=== PATIENT | female | born 2000 | race American Indian/Alaskan Native ===

== ENCOUNTER 2025-02-05 13:34 | Observation (INO) | payer MEDICAID, SELFPAY ==
[2025-02-05 13:54] VITALS: BP 116/69; PULSE 78
[2025-02-05 14:12] VITALS: BMI 39.4
[2025-02-05 15:25] VITALS: BP 116/69; PULSE 78; RESP 18; RESP 99; TEMP 36.8
== END 2025-02-05 15:15 | disposition home or self-care (01) ==
PROVIDERS: Admitting Provider Obstetrics & Gynecology; Visit Provider Obstetrics & Gynecology
DX: O26.853 Spotting complicating pregnancy, third trimester (principal); Z3A.32 32 weeks gestation of pregnancy
CPT/HCPCS: 59025; 59899

== ENCOUNTER 2025-03-06 11:38 | Observation (INO) | payer MEDICAID, SELFPAY ==
[2025-03-06] VITALS (15 sets, daily range): BP systolic 118–132; BP diastolic 70–80; PULSE 73–99; RESP 18–97; TEMP 36.8; O2SAT 97–99; BMI 40.6
--- NOTE | 2025-03-06 12:26 | XR_ITS ---
Examination: Biophysical profile, ultrasound Date and time of exam: January 06, 2025 1301 hrs. Indications: Onset pelvic contractions today Technique: Multiple transabdominal sonographic images of the pelvis abdomen obtained. Attention is directed to the breathing movement, gross body movement, amniotic fluid volume and tone. Findings: Amniotic fluid index 7.9 cm Total biophysical profile is 8 of 8. breathing movement is 2. Gross body movement is 2. tone is 2. Qualitative amniotic fluid volume is 2 Impression: Biophysical profile is 8 of 8.
== END 2025-03-06 13:51 | disposition home or self-care (01) ==
PROVIDERS: Admitting Provider Student in an Organized Health Care Education/Training Program; PCP Nurse Practitioner Women's Health; Visit Provider Student in an Organized Health Care Education/Training Program
DX: O47.03 False labor before 37 completed weeks of gestation, third trimester (principal); Z3A.36 36 weeks gestation of pregnancy
CPT/HCPCS: 59025; 59899; 76819

== ENCOUNTER 2025-03-17 16:49 | Outpatient (CLI) | payer MEDICAID, SELFPAY ==
[2025-03-17 16:55] VITALS: BP 129/68; PULSE 74
[2025-03-17 18:04] LABS: Collection Type, Urine Clean Catch
[2025-03-17 18:15] LABS: Basophils % (Auto) 1 % (0-2.5); Eosinophils % (Auto) 0 % (0-10); Hematocrit 31.4 % (36.0-46.0); Immature Granulocytes % (Auto) 0 % (0-0); Immature Granulocytes Auto 0.01 Thou/mm3 (0.00-0.00); Lymphocytes # (Auto) 2.5 Thou/mm3 (1.0-4.8); Lymphocytes % (Auto) 45 % (10-50); Mean Corpuscular Hemoglobin 28.8 pg (25.0-35.0); Mean Corpuscular Volume 82 fL (80-100); Monocytes # (Auto) 0.4 Thou/mm3 (0.0-0.8); Monocytes % (Auto) 6 % (0-12); Neutrophils # (Auto) 2.7 Thou/mm3 (1.8-7.7); Neutrophils % (Auto) 48 % (37-80); Nucleated Red Blood Cell % 0 /100 WBC (0); Platelet Count 178 Thou/mm3 (140-440); Red Blood Count 3.82 Miln/mm3 (4.00-5.20); White Blood Count 5.6 Thou/mm3 (3.6-11.0)
[2025-03-17 18:16] LABS: Bilirubin,Urine Negative (Negative); Blood,Urine Negative (Negative); Clarity,Urine Clear (Clear/Hazy); Color,Urine Lt-Yellow (Lt Yel-Yel); Glucose, Urine Negative (Negative); Ketones,Urine Negative (Negative); Leukocyte Esterase,Urine Positive (Negative); Nitrite,Urine Negative (Negative); Protein,Urine Trace (Neg - Trace); RBC,Urine 3 /hpf (0-3); Specific Gravity,Urine 1.019 (1.001-1.035); Squamous Epithelial Cell,Urine 6 /hpf (0-5); Urobilinogen,Urine Negative mg/dL (0.0-1.0); WBC,Urine 15 /hpf (0-5)
--- NOTE | 2025-03-17 18:22 | XR_ITS ---
Examination: Biophysical profile, ultrasound Date and time of exam: March 17, 2025 1834 hrs. Indications: Blurred vision today, clinical diagnosis preeclampsia, history gestational diabetes Technique: Multiple transabdominal sonographic images of the pelvis abdomen obtained. Attention is directed to the breathing movement, gross body movement, amniotic fluid volume and tone. Findings: Amniotic fluid index 8.7 cm Total biophysical profile is 8 of 8. breathing movement is 2. Gross body movement is 2. tone is 2. Qualitative amniotic fluid volume is 2 Impression: Biophysical profile is 8 of 8.
[2025-03-17 18:24] VITALS: BP 129/68; PULSE 74; RESP 16; RESP 98; TEMP 37.1
[2025-03-17 18:46] LABS: Alanine Aminotransferase 8 U/L (10-49); Albumin, Serum 3.7 gm/dL (3.5-5.0); Albumin/Globulin Ratio 1.1 (1.2-2.2); Alkaline Phosphatase 262 U/L (46-116); Anion Gap 8 (7-16); Aspartate Amino Transferase 17 U/L (0-34); BUN/Creatinine Ratio 14 Ratio (12-20); Bilirubin,Total 0.4 mg/dL (0.3-1.2); Blood Urea Nitrogen 11 mg/dL (9-23); Calcium 8.8 mg/dL (8.3-10.6); Carbon Dioxide 21.6 mMol/L (20.0-31.0); Chloride 109 mMol/L (98-107); Creatinine (Component) 0.8 mg/dL (0.6-1.3); Globulin 3.3 gm/dL (2.3-3.5); Glucose 82 mg/dL (74-106); Osmolality,Calculated 275 (275-295); Potassium 4.2 mMol/L (3.4-5.1); Sodium 139 mMol/L (136-145); Uric Acid 7.3 mg/dL (3.1-7.8); eGFR > 60 See Note
[2025-03-17 18:52] LABS: Fibrinogen 560 mg/dL (175-375); INR 0.9 (0.9-1.3); Prothrombin Time 10.1 Seconds (9.0-12.2)
[2025-03-17 19:00] VITALS: BMI 41.3
== END 2025-03-17 19:55 | disposition home or self-care (01) ==
LOC: S4S1 16:49 → S4SX 16:50
PROVIDERS: Referring Provider Nurse Practitioner Women's Health; Visit Provider Nurse Practitioner Women's Health
DX: Z34.03 Encounter for supervision of normal first pregnancy, third trimester (principal); Z36.89 Encounter for other specified antenatal screening; Z3A.37 37 weeks gestation of pregnancy
CPT/HCPCS: 36415; 59025; 76819; 80053; 81001; 84550; 85025; 85384; 85610; 85730

== ENCOUNTER 2025-03-24 10:58 | Outpatient (RCR) | payer MEDICAID, SELFPAY ==
--- NOTE | 2025-03-16 10:19 | XR_ITS ---
Examination: Biophysical profile, ultrasound Date and time of exam: March 16, 2025 1035 hours INDICATIONS: Diagnosis maternal obesity, diagnosis gestational diabetes Technique: Multiple transabdominal sonographic images of the pelvis abdomen obtained. Attention is directed to the breathing movement, gross body movement, amniotic fluid volume and tone. Findings: Amniotic fluid index 9.8 cm Total biophysical profile is 8 of 8. breathing movement is 2. Gross body movement is 2. tone is 2. Qualitative amniotic fluid volume is 2 Impression: Biophysical profile is 8 of 8.
[2025-03-16 11:12] VITALS: BP 124/68; PULSE 75; RESP 16; TEMP 36.7
--- NOTE | 2025-03-24 11:02 | XR_ITS ---
Examination: Biophysical profile, ultrasound Date and time of exam: March 24, 2025 1110 hours INDICATIONS: Diagnosis maternal obesity, diagnosis gestational diabetes Technique: Multiple transabdominal sonographic images of the pelvis abdomen obtained. Attention is directed to the breathing movement, gross body movement, amniotic fluid volume and tone. Findings: Amniotic fluid index 13.2 cm Total biophysical profile is 8 of 8. breathing movement is 2. Gross body movement is 2. tone is 2. Qualitative amniotic fluid volume is 2 Impression: Biophysical profile is 8 of 8.
[2025-03-24 11:38] VITALS: BP 136/72; PULSE 93; RESP 16; TEMP 36.6
== END 2025-03-24 23:59 | disposition home or self-care (01) ==
LOC: S4S1 10:58
PROVIDERS: Referring Provider Nurse Practitioner Women's Health; Visit Provider Nurse Practitioner Women's Health
DX: O24.410 Gestational diabetes mellitus in pregnancy, diet controlled (principal); Z3A.38 38 weeks gestation of pregnancy
CPT/HCPCS: 59025; 76819

== ENCOUNTER 2025-03-27 07:23 | Inpatient (IN) | payer MEDICAID, SELFPAY ==
[2025-03-27] VITALS (194 sets, daily range): BP systolic 124–182; BP diastolic 67–108; PULSE 74–127; RESP 18; TEMP 36.6–37; O2SAT 89–100; BMI 41.5
[2025-03-27] MEDS: Ampicillin Inj 2,000 MG in SODIUM CHLORIDE 0.9% (POP) 100 ML 200 MG IV (08:15)
[2025-03-27] MEDS: RINGERS LACTATED 1000 ML 1,000 ML 100 ML IV ×2 (08:16→22:40)
[2025-03-27 09:10] LABS: Amphetamine/Metham Scrn,Ur OB Negative (Negative); Benzoylecgonine Screen, Ur OB Negative (Negative); Opiate Screen,Urine OB Negative (Negative); THC Screen,Urine OB Negative (Negative)
[2025-03-27 09:19] LABS: Basophils % (Auto) 1 % (0-2.5); Eosinophils % (Auto) 0 % (0-10); Hematocrit 35.2 % (36.0-46.0); Hemoglobin 12.3 g/dL (12.0-16.0); Immature Granulocytes % (Auto) 0 % (0-0); Immature Granulocytes Auto 0.02 Thou/mm3 (0.00-0.00); Lymphocytes # (Auto) 2.9 Thou/mm3 (1.0-4.8); Lymphocytes % (Auto) 49 % (10-50); Mean Corpuscular HGB Conc 34.9 g/dl (31.0-37.0); Mean Corpuscular Hemoglobin 28.7 pg (25.0-35.0); Mean Corpuscular Volume 82 fL (80-100); Monocytes # (Auto) 0.5 Thou/mm3 (0.0-0.8); Monocytes % (Auto) 8 % (0-12); Neutrophils # (Auto) 2.5 Thou/mm3 (1.8-7.7); Neutrophils % (Auto) 42 % (37-80); Nucleated Red Blood Cell % 0 /100 WBC (0); Platelet Count 182 Thou/mm3 (140-440); RDW Standard Deviation 42.4 fL (36.4-46.3); Red Blood Count 4.29 Miln/mm3 (4.00-5.20); White Blood Count 5.9 Thou/mm3 (3.6-11.0)
[2025-03-27 09:22] LABS: Collection Type, Urine Clean Catch
[2025-03-27 09:23] LABS: Alanine Aminotransferase 8 U/L (10-49); Albumin, Serum 3.9 gm/dL (3.5-5.0); Albumin/Globulin Ratio 1.1 (1.2-2.2); Alkaline Phosphatase 272 U/L (46-116); Anion Gap 11 (7-16); Aspartate Amino Transferase 17 U/L (0-34); BUN/Creatinine Ratio 16 Ratio (12-20); Bilirubin,Total 0.4 mg/dL (0.3-1.2); Blood Urea Nitrogen 13 mg/dL (9-23); Calcium 9.6 mg/dL (8.3-10.6); Calcium (Corrected) 9.7 mg/dL (8.5-10.1); Carbon Dioxide 17.4 mMol/L (20.0-31.0); Chloride 109 mMol/L (98-107); Creatinine (Component) 0.8 mg/dL (0.6-1.3); Globulin 3.6 gm/dL (2.3-3.5); Glucose 90 mg/dL (74-106); Osmolality,Calculated 273 (275-295); Sodium 137 mMol/L (136-145); Total Protein 7.5 gm/dL (5.7-8.2); Uric Acid 7.1 mg/dL (3.1-7.8); eGFR > 60 See Note
[2025-03-27 09:27] LABS: Syphilis Nonreactive (Nonreactive)
[2025-03-27 09:46] LABS: Bilirubin,Urine Negative (Negative); Blood,Urine Trace (Negative); Clarity,Urine Clear (Clear/Hazy); Color,Urine Colorless (Lt Yel-Yel); Glucose, Urine Negative (Negative); Ketones,Urine Negative (Negative); Leukocyte Esterase,Urine Negative (Negative); Nitrite,Urine Negative (Negative); PH,Urine 7.5 (5.0-7.0); Protein,Urine Negative (Neg - Trace); RBC,Urine 11 /hpf (0-3); Specific Gravity,Urine 1.008 (1.001-1.035); Squamous Epithelial Cell,Urine < 1 /hpf (0-5); Urobilinogen,Urine Negative mg/dL (0.0-1.0); WBC,Urine 2 /hpf (0-5)
[2025-03-27 11:07] LABS: Fibrinogen 523 mg/dL (175-375); INR 0.9 (0.9-1.3); Partial Thromboplastin Time 26.3 Seconds (22.0-36.0); Prothrombin Time 10.2 Seconds (9.0-12.2)
[2025-03-27] MEDS: Ampicillin Inj 1,000 MG in SODIUM CHLORIDE 0.9% (Popper) 50 ML 50 MG IV ×3 (12:13→21:27)
[2025-03-27] MEDS: fentaNYL CIT INJ 50 mCg/ML AMP 2ML 100 MCG IV (12:21)
[2025-03-27] MEDS: OXYTOCIN in NS 30 units 30 UNIT/500 ML BAG IV (19:20)
--- NOTE | 2025-03-27 20:55 | PD.LDHP ---
Documentation for date of: 03/27/25 OB Labor/Induct. HPI History of Present Illness Chief complaint: labor : 2 Para: 0 Term pregnancies: 0 pregnancies: 0 Living children: 0 History of Abortions: Spontaneous and Elective: 1 History of Vaginal deliveries: 0 History of sections: No History of : No Date of last menstrual period: 06/19/24 SUSY: 03/26/25 Gestational Age (weeks): 39 Gestational Age (days): 0 Gestational age based on last menstrual period: 40 Indication for induction: other (GDM diet) History of present illness: 24-year-old 2 para 0 admit to labor and delivery with contractions since 3 in the morning. Patient has a history of GDM diet-controlled with this . Her last period June 19, 2024. This gives due date March 26, 2025. Patient had a 24-week anatomy scan that showed normal anatomy and then she had a 8-week scan in August that confirmed dates and showed viability. Patient is O+, antibody screen negative, RPR nonreactive, rubella immune, hepatitis B negative, hep C negative, HIV negative, GC and Chlamydia were negative. Patient had abnormal 1 hour Glucola energy 3-hour GTT was abnormal. GBS is positive. Denies social habits. Denies surgery. Denies chronic illness. History of Present Dating criteria: LMP confirmed by 1st trimester US Adequate Care: Yes Ultrasounds: normal 1st trimester US and normal mid trimester US Obstetrical complications: gestational diabetes Medical complications: none Labs Labs: Positive: Group Beta Strep and Negative: Hepatitis B, HIV, Chlamydia and Gonorrhea Review of Systems Review of Systems Systems Reviewed: All systems reviewed, normal except as documented Past Medical History Surgical History SURGICAL: Negative Section Meds Home Medications and Allergies Home Medications ?Medication ?Instructions ?Recorded ?Confirmed ?Type vits no.130-ferrous fum 1 tab PO QDAY 02/05/25 03/17/25 History 27 mg iron-folic acid 800 mcg tablet ( Vitamin) aspirin 81 mg chewable tablet 03/17/25 History ferrous sulfate 325 mg (65 mg mg 03/17/25 History iron) tablet Allergies Allergy/AdvReac Type Severity Reaction Status Date / Time No Known Allergies Allergy Verified 03/17/25 17:06 OB Exam Physical Exam Vital signs: Temp Pulse Resp BP Pulse Ox 98.6 F 86 18 152/96 H 96 03/27/25 20:13 03/27/25 20:42 03/27/25 08:29 03/27/25 20:42 03/27/25 20:52 Narrative: Normal heart rate and rhythm. Lungs clear no wheezes. Gravid abdomen. Gynecoid pelvis. Estimated weight 8 pounds. Vaginal exam on admission was 70%, 4, -2. Vertex. Bag water intact. heart rate category 1 with accelerations and moderate variability and contractions were about every 4 minutes. Routine Cardiovascular Exam Cardiovascular: Present RRR Detailed Labor and Delivery Exam Dilation (cm): 4 Effacement (%): 80 Cervix position: mid station: -2 Consistency: medium Presentation: Vertex Cervical ripeness score: 8 Baseline heart rate: 135 monitor accelerations: 15x15 monitor decelerations: None MCC variability: Moderate (11-25) Contraction frequency (min): 4 Contraction duration (sec): 30 Tachysystole: No Contraction intensity: Moderate OB Results Labs 03/27/25 08:00 03/27/25 08:00 Labs: Short CBC 03/27/25 Range/Units 08:00 WBC 5.9 (3.6-11.0) Thou/mm3 Hgb 12.3 (12.0-16.0) g/dL Hct 35.2 L (36.0-46.0) % Plt Count 182 (140-440) Thou/mm3 BMP 03/27/25 08:00 Sodium 137 Potassium 4.0 Chloride 109 H Carbon Dioxide 17.4 L BUN 13 Creatinine 0.8 Glucose 90 Calcium 9.6 Liver Function 03/27/25 Range/Units 08:00 Total Bilirubin 0.4 (0.3-1.2) mg/dL AST 17 (0-34) U/L ALT 8 L (10-49) U/L Alkaline Phosphatase 272 H (46-116) U/L Albumin 3.9 (3.5-5.0) gm/dL Urine 03/27/25 Range/Units 08:40 Urine Color Colorless A (Lt Yel-Yel) Urine Clarity Clear (Clear/Hazy) Urine pH 7.5 H (5.0-7.0) Ur Specific [place] 1.008 (1.001-1.035) Urine Protein Negative (Neg - Trace) Urine Glucose (UA) Negative (Negative) OB Assessment & Plan Assessment and Plan (1) Normal labor and delivery: Status: Acute Additional Plan Induction method: none Plan: augmentation, anticipate NVD, GBS prophylaxis tx and consult MD johnson
--- NOTE | 2025-03-27 21:01 | PD.LDPN ---
Documentation for date of: 03/27/25 OB Labor Progress Note Pain Control Pain control: tolerating well and epidural Pelvic Exam Dilation (cm): 5 Effacement (%): 90 station: -1 Amniotic membrane status: Ruptured (bloody) Contractions Monitor mode: Internal (4) Contraction frequency: 4 Contraction duration: 40 Contraction phase: Resting Contraction intensity: Moderate Status status: Category l Assessment and Plan Pitocin rate (mU/min): 1 Assessment: induction ongoing Plan OB labor note: begin Pitocin augmentation CNM Management MD Consulted (describe details below): Yes
[2025-03-28] VITALS (62 sets, daily range): BP systolic 110–189; BP diastolic 68–108; PULSE 79–155; RESP 16–18; TEMP 36.6–38.8; O2SAT 88–99
[2025-03-28] MEDS: MINERAL OIL 30 ML UDC TOP (01:05)
[2025-03-28] MEDS: MISOPROSTOL 200 mCg TABLET 800 MCG PR (01:12)
[2025-03-28] MEDS: LIDOCAINE HCL 1% 20 ML VIAL INFL (01:13)
[2025-03-28] MEDS: OXYTOCIN INJ 10 UNIT/ML VIAL IM (01:14)
[2025-03-28] MEDS: BENZO/LANO/ALOE (Dermoplast) 60 GM CAN 1 SPRAY TOP (01:27)
--- NOTE | 2025-03-28 01:51 | PD.LDDELS ---
Data (Hughes) Data Hx Section: No : 1 Para: 0 Term: 0 : 0 : 0 Delivery Data (Hughes) Labor Data Stimulated/Augmented: Yes Induction: No Method: Oxytocin ROM Date: 03/27/25 ROM Time: 20:05 Rupture Type: AROM Amniotic Fluid: Bloody Delivery Data EDC: 03/26/25 EDC calculated by:: LMP/early US confirmation Labor Onset Stage 1 Date: 03/27/25 Labor Onset Stage 1 Time: 03:00 Labor Onset Stage 2 Date: 03/27/25 Labor Onset Stage 2 Time: 23:44 Delivery Date: 03/28/25 Delivery Time: 01:09 Gestational age (weeks): 39 Gestational age (days): 0 Placenta Delivery Date: 03/28/25 Placenta Delivery Time: 01:15 Delivered by: Rosemarie Harris Delivery nurse: Parisa Timmons Machine Clothing Replacer at delivery: No Support person(s) at delivery: fob Other staff at delivery: Nursery Nurse Other staff at delivery: Jaqui Moran Delivery Method Delivery: Vaginal Delivery Type: Spontaneous Presentation: Vertex Position: OA Anesthesia Type Primary Anesthesia: Epidural Delivery Room Medications Intrapartum Medications: Narcotics and Tocolytics Post Delivery Medications: Tocolytics and Cytotec Post Delivery Medications N/A: No Placenta Placenta Delivery: Spontaneous (inspected. intact membranes) Placenta Cultures Obtained: No Placenta Sent for Examination: No Cord Sample: Cord Blood Obtained Episiotomy Episiotomy: None Lacerations #1: Vaginal: 1st degree (bilateral labial) Perineal repair Sutures used for repair: 3.0 Vicryl EBL Estimated blood loss (ml): 400 Umbilical Cord Umbilical Vessels: 3 Nuchal Cord: None Body Cord: None Data (Hughes) Data Gender: Female Infant Weight Grams: 3050 1 Minute Total: 9 5 Minute Total: 9
[2025-03-28] MEDS: IBUPROFEN TAB 400 MG TABLET 800 MG PO ×2 (02:51→20:05)
[2025-03-28] MEDS: NIFEdipine 10 MG CAPSULE PO (02:55)
[2025-03-28] MEDS: Ampicillin Inj 1,000 MG in SODIUM CHLORIDE 0.9% (Popper) 50 ML 50 MG IV ×6 (02:55→22:41)
[2025-03-28] MEDS: SODIUM CHLORIDE 0.9% 1000 ML 2,000 ML 999 ML IV (02:57)
[2025-03-28] MEDS: ACETAMINOPHEN IVPB 1,000 MG/100 ML VIAL 250 MG IV (02:58)
[2025-03-28] MEDS: GENTAMICIN/NS 80 MG IVPB 80 MG in PRE-MIXED 1 BAG 50 MG IV ×2 (03:37→20:04)
--- NOTE | 2025-03-28 03:58 | PC.NURSE ---
0358:PT TRANSFERRED TO ROOM 461 VIA AMBULATION, ACCOMPANIED BY CHARGE NURSE, FATHER OF INFANT, INFANT IN OPEN CRIB AND BELONGINGS. PT ORIENTED TO ROOM 461, INSTRUCTED TO CALL NURSE TO ASSIST WITH GETTING OOB TO BR WHEN SHE NEEDS TO USE THE BR, PT VERBALIZED UNDERSTANDING, CALL LIGHT WITHIN REACH.
[2025-03-28] MEDS: NIFEdipine XL 30 MG TABCR PO (09:15)
[2025-03-28] MEDS: DOCUSATE SOD 100 MG CAPSULE PO ×2 (09:15→20:04)
[2025-03-28 09:32] LABS: Basophils % (Auto) 1 % (0-2.5); Eosinophils % (Auto) 0 % (0-10); Hematocrit 29.4 % (36.0-46.0); Hemoglobin 10.1 g/dL (12.0-16.0); Immature Granulocytes % (Auto) 1 % (0-0); Immature Granulocytes Auto 0.03 Thou/mm3 (0.00-0.00); Lymphocytes # (Auto) 2.4 Thou/mm3 (1.0-4.8); Lymphocytes % (Auto) 42 % (10-50); Mean Corpuscular HGB Conc 34.4 g/dl (31.0-37.0); Mean Corpuscular Hemoglobin 28.5 pg (25.0-35.0); Mean Corpuscular Volume 83 fL (80-100); Monocytes # (Auto) 0.5 Thou/mm3 (0.0-0.8); Monocytes % (Auto) 9 % (0-12); Neutrophils # (Auto) 2.7 Thou/mm3 (1.8-7.7); Neutrophils % (Auto) 47 % (37-80); Nucleated Red Blood Cell % 0 /100 WBC (0); Platelet Count 137 Thou/mm3 (140-440); RDW Standard Deviation 43.8 fL (36.4-46.3); Red Blood Count 3.54 Miln/mm3 (4.00-5.20); White Blood Count 5.6 Thou/mm3 (3.6-11.0)
[2025-03-29] MEDS: Ampicillin Inj 1,000 MG in SODIUM CHLORIDE 0.9% (Popper) 50 ML 50 MG IV ×2 (02:40→06:36)
[2025-03-29 03:12] VITALS: BP 111/73; PULSE 70; RESP 16; TEMP 36.6; O2SAT 98
[2025-03-29] MEDS: ACETAMINOPHEN 325 MG TABLET 650 MG PO ×2 (04:29→12:26)
[2025-03-29] MEDS: IBUPROFEN TAB 400 MG TABLET 800 MG PO (06:42)
[2025-03-29 08:00] VITALS: BP 130/88; PULSE 76; RESP 16; TEMP 36.3; O2SAT 98
[2025-03-29 08:02] VITALS: BP 130/88; PULSE 76
[2025-03-29] MEDS: NIFEdipine XL 30 MG TABCR PO (08:02)
[2025-03-29] MEDS: DOCUSATE SOD 100 MG CAPSULE PO (08:02)
--- NOTE | 2025-03-29 08:02 | ESDS_ITS ---
DS: Providers Provider Date of admission: 03/27/25 08:09 Primary care physician: Chino Tyler MD Admitting Provider: Ubaldo Chiang MD Attending Provider on Admission: Mikhail Contreras MD Consults: 03/28/25 02:40 Referral Routine Comment: Attending Provider on DC: Josie Ann CNM Discharging Provider: Josie Ann CNM Anticipated date of discharge: 03/29/25 DS: Diagnosis Discharge Diagnosis (1) Normal labor and delivery: Status: Acute (2) Encounter for care of lactating mother: Status: Acute Problem List Completed Was Problem List Reviewed/Reconciled?: Yes Summary/Hosp Course Brief History: 24-year-old 2 para 0 admit to labor and delivery with contractions since 3 in the morning. Patient has a history of GDM diet-controlled with this . Her last period June 19, 2024. This gives due date March 26, 2025. Patient had a 24-week anatomy scan that showed normal anatomy and then she had a 8-week scan in August that confirmed dates and showed viability. Patient is O+, antibody screen negative, RPR nonreactive, rubella immune, hepati tis B negative, hep C negative, HIV negative, GC and Chlamydia were negative. Patient had abnormal 1 hour Glucola energy 3-hour GTT was abnormal. GBS is positive. Denies social habits. Denies surgery. Denies chronic illness. 03/29/25: day 1. Patient is stable and afebrile doing well. Denies dizziness shortness of breath. No problems ambulating or voiding. No bowel movement yet. Uterus is nontender fundus firm minimal lochia. Discharge instructions given. Patient to follow-up with Josie Ann CNM in 3 weeks Peripartum Data Delivery Method: Normal Vaginal Delivery Episiotomy Description: None Laceration Description: yes and see Delivery Summary complications: none [place] 1: Gender: Female Disposition of : home Status at Discharge Cognitive/behavioral status at discharge: Alert and oriented x 3 Functional status at discharge: independent ambulation Overall status at discharge: patient is progressing back to baseline Time Spent with Patient Time attestation: Total time spent providing and/or coordinating discharge services: Time spent: Greater than 30 minutes Exam Vital Signs Temp Pulse Resp BP Pulse Ox O2 Del Method 97.9 F 70 16 111/73 98 Room Air 04/28/25 03:12 03/29/25 03:12 03/29/25 03:12 03/29/25 03:12 03/29/25 03:12 03/29/25 03:12 Constitutional Constitutional: no acute distress Routine HEENT Exam Head: Present normocephalic and atraumatic Eye: Present EOMI, PERRL and normal accommodation ENT: Present mucous membranes moist Routine Neck Exam Neck: Present full ROM Routine Respiratory Exam Respiratory: Present chest non-tender, lungs clear, normal breath sounds and no resp distress Routine Cardiovascular Exam Cardiovascular: Present RRR Routine Abdominal Exam Abdominal: Present soft and normoactive bowel sounds; Absent tenderness or distended Comments: Uterus nontender Fundus firm Routine Exam Patient deferred: external exam Routine Extremities Exam Extremities: Present full ROM, pulses intact and normal capillary refill; Absent calf tenderness or tenderness Routine Back/Spine/Pelvis Exam Back/Spine: Present full ROM Routine Skin Exam Skin: Present intact, dry and warm Routine Neurological Exam Neurological: Present alert, oriented X3 and CN II-XII intact Routine Psychiatric Exam Psychiatric: Present normal affect and normal thought process Discharge Plan Plan Patient Disposition: HOME (Self Care) Patient condition on transfer: Stable Prescriptions/Referrals Prescriptions/Med Rec: New ibuprofen 800 mg tablet 800 mg PO Q6H MDD 4 PRN (Reason: pain) Qty: 90 0RF docusate sodium [Colace] 100 mg capsule 100 mg PO BID Qty: 60 0RF lanolin 50 % ointment 1 applic topical TID PRN (Reason: skin irritation) Qty: 15 0RF Continued ferrous sulfate 325 mg (65 mg iron) tablet Patient Comments: TAKE 1 TABLET BY MOUTH TWICE A DAY Vitamin 27 mg iron- 800 mcg tablet 1 tab PO QDAY Discontinued aspirin 81 mg tablet,chewable Patient Comments: TAKE 1 TABLET BY MOUTH EVERY DAY Referrals: Chino Tyler MD [Primary Care Provider] - Patient/Caregiver Discharge Instructions Discharge Activity: activity as tolerated Other Discharge Activity Instructions:: Follow-up with Josie Ann CNM in 3 weeks Education Materials: After a Vaginal , : Caring for Yourself Print Language: Malay Stand Alone Forms: [place] Award Info., Patient Portal Info Letter Discharge Order Discharge Orders: Discharge (Routine); Ordered 03/29/25 Ordered By: Josie Ann Planned Discharge Date 03/29/25
[2025-03-29 11:46] VITALS: BP 125/87; PULSE 80; RESP 18; TEMP 36.6; O2SAT 98
== END 2025-03-29 15:35 | disposition home or self-care (01) | DRG 560 ==
LOC: S4SX 03-29 06:31 → S4NX 03-29 06:31
PROVIDERS: Advanced Practice Midwife; Admitting Provider Obstetrics & Gynecology; PCP Family Medicine; Visit Provider Specialist
DX: O24.420 Gestational diabetes mellitus in childbirth, diet controlled (principal); Z3A.39 39 weeks gestation of pregnancy; Z37.0 Single live birth; O70.0 First degree perineal laceration during delivery
CPT/HCPCS: 36415; 59409; 80053; 80307; 81001; 84550; 85025; 85384; 85610; 85730; 86780; 86850; 86870; 86900; 86901; 94762; J0131; J0290; J1580; J2590; J2795; J3010; J3490; J7030; J7050; J7120; S0191; A9270